=== PATIENT | female | born 1955 | race Two or more races ===

== ENCOUNTER → 2016-04-25 | Outpatient (CLI) | payer OTHER ==
--- NOTE | 2016-05-16 07:47 | MA ---
Screening Digital Mammogram With iCAD Analysis Clinical Indications: Routine screening. Technique: Standard cephalocaudal and mediolateral oblique projections were obtained. This examination was processed by the iCAD computer aided detection system. Comparison: No previous mammograms are available for comparison at this time. Breast density: Type C; Heterogeneously dense. Findings: CAD was reviewed. No masses, suspicious calcifications or other signs of malignancy are identified. Impression: Negative mammogram. BI-RADS 1. Recommendation: Repeat mammography in one year as long as physical examination is negative in this patient with heterogeneously dense breasts. [facility] will send a result letter to the patient. If prior studies do become available, an addendum comparison report will be issued. Dense breast parenchyma diminishes mammographic sensitivity. Negative mammography should not preclude additional workup of a clinically suspicious finding. The patient's information is entered into a reminder system with a target due date for her next mammogram. [facility]
== END ==
LOC: CIMAGING 12:05
PROVIDERS: ATTEND Internal Medicine
DX: Z12.31 Encounter for screening mammogram for malignant neoplasm of breast (principal)
CPT/HCPCS: G0202

== ENCOUNTER → 2017-09-13 | Outpatient (CLI) | payer OTHER | LOC: CIMAGING 09:24 | PROVIDERS: ATTEND Internal Medicine | DX: Z12.31 Encounter for screening mammogram for malignant neoplasm of breast (principal) ==

== ENCOUNTER 2018-03-22 19:13 | Emergency (ER) | payer OTHER ==
[2018-03-22] MEDS ORDERED: SILVER NITRATE APPLICATOR 1 APPL TP ONE (19:21)
[2018-03-22] MEDS ORDERED: LET GEL TOPICAL 1 EA SYR TP ONE (19:27)
--- NOTE | 2018-03-22 20:06 | EDPHY ---
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 It is located just below the vermilion border of the lower lip just right of midline. She has been holding steady pressure for 90 min with still steady bleeding from the area that prompted her visit. Her friend drove her here by private vehicle. She notes no other exacerbating factors. She has never had this occur to her before. ROS: Hematological: No easy bruising recently. No hematuria. No prior history of hemangioma Cardiovascular: No lightheadedness Integumentary: No skin lesions. 5 point review of symptoms is performed and otherwise negative with exception of pertinent positives and negatives listed in HPI and ROS Smoking Status: Former smoker Physical Exam: Physical Exam Vital signs are normal. General: No acute distress HEENT: Patient has a small area steady venous appearing bleeding that is not pulsatile from an area just right of midline and 1 or 2 mm below the vermilion border of the lower lip there is no evidence of acute trauma to the area. Eyes: Pupils equal and react to light. Extraocular motions are intact. Cardiac: Brisk capillary refill is intact throughout. Skin: No rash or pallor. Neuro: Alert and oriented x3 Constitutional: Initial Vital Signs Temperature (C) 36.7 C 03/22/18 19:23 Heart Rate 67 03/22/18 19:23 Respiratory Rate 16 03/22/18 19:23 Blood Pressure 146/74 H 03/22/18 19:23 O2 Sat (%) 95 03/22/18 19:23 O2 Delivery Mode Room Air Allergies/Adverse Reactions: Sulfa (Sulfonamide Antibiotics) Allergy (Verified 03/22/18 19:22) Home Medications: Medication Instructions Recorded Estradiol [Vivelle-Dot 0.025MG (*)] 03/22/18 MDM/Departure - MDM Procedures: Suture placement: After verbal consent used baby shampoo and tap water to clean the area. She had a let solution anesthesia initially followed by 1% plain lidocaine with sodium bicarb buffer, 30 gauge needle, 0.5 mL with good effect. I then placed a single [id number] suture using 5 0 Ethilon with good hemostasis. Patient tolerated this well with no complications. I then counseled regarding wound care and the need for follow-up. Medications Given: Discontinued Medications Tetracaine/Epinephrine/Lidocaine (Let Gel Topical) 1 ea TP EDNOW ONE Stop: 03/22/18 19:28 Last Admin: 03/22/18 19:31 Dose: 1 ea ED Course/Re-evaluation: A consulted to Dr. Collado, plastic surgeon environmental field professional regarding this case and he endorses the plan of a [id number] suture to the area of bleeding and follow up in his office. - Depart Disposition: Home, Routine, Self-Care Clinical Impression: Hemangioma of lip, Spontaneous bleeding from lip hemangioma Condition: Good Instructions: Care For Your Stitches (ED) Additional Instructions: Diagnosis: Spontaneous bleeding from lip hemangioma Plan: Try to keep these suture mostly clean and dry for the next 2 days. Avoid acidic foods Call Dr. Collado, plastic surgeon to arrange follow-up appointment to be seen within the next 3-5 days in follow up Tylenol and ice for pain if needed Return emergency department if he developed recurrent bleeding despite the suture or other concerns Referrals: Blas Collado MD [Medical Doctor] - As per Instructions
[2018-03-22 20:16] VITALS: BP 131/76
== END 2018-03-22 20:12 | disposition home or self-care (01) ==
LOC: CED 19:13
PROC: 0CQ1XZZ Repair Lower Lip, External Approach (ICD-10-PCS; principal; 2018-03-22)
DX: D18.01 Hemangioma of skin and subcutaneous tissue (principal); R58 Hemorrhage, not elsewhere classified; Z87.891 Personal history of nicotine dependence